=== PATIENT | female | born 1960 | race Caucasian/White ===

== ENCOUNTER 2021-10-11 20:12 | Emergency (ER) | payer OTHER ==
[2021-10-11] MEDS ORDERED: Bacitracin Oint 1 GM U/D Packet TOP ONE (20:32)
[2021-10-11] MEDS ORDERED: Diphtheria,Pertussis(Acell),Tetanus Vaccine 0.5 ML Syringe IM ONE (20:32)
[2021-10-11] MEDS ORDERED: traMADol 50 MG Tab PO ONE (20:50)
[2021-10-11] MEDS ORDERED: Amoxicillin/Clavulanate K 875-125 MG Tab PO ONE (20:50)
== END 2021-10-11 21:22 | disposition home or self-care (01) ==
LOC: MW.ED 20:12
DX: S61.452A Open bite of left hand, initial encounter (principal); Z23 Encounter for immunization; Z79.899 Other long term (current) drug therapy; W55.01XA Bitten by cat, initial encounter
CPT/HCPCS: 90471; 90715; 99283; A9270